=== PATIENT | male | born 1965 | race Caucasian/White ===

== ENCOUNTER 2022-07-01 15:15 | Inpatient (IN) ==
[2022-07-01] MEDS ORDERED: VANCOMYCIN INJ 1,000 MG in SODIUM CHLORIDE 0.9% 250 ML IV STA (21:44)
[2022-07-01 22:13] LABS: Basophils % 0.5 % (0.0-0.8); Eosinophils # 0.1 10*3/uL (0.0-0.87); Eosinophils % 1.4 % (0.00-10.9); Hematocrit 36.2 VOL% (42.0-52.0); Hemoglobin 11.7 GM/DL (14.0-18.0); Immature Granulocytes % 0.6 %; Immature Granulocytes Absolute 0.05 #; Lymphocytes # 1.6 10*3/uL (1.4-4.0); Mean Corpuscular HGB Conc 32.3 GM/DL (32-36); Mean Corpuscular Volume 89.2 FL (87-102); Mean Platelet Volume 10.1 FL (9.6-12.0); Monocytes # 0.3 10*3/uL (0.11-0.8); Neutrophils % 73.5 % (38.7-73.9); Platelet Count 403 T/CUMM (130-400); Red Blood Count 4.06 MC/CUMM (3.8-5.5); Red Cell Distribution Width 13.5 % (9.3-17.3)
[2022-07-01 22:32] LABS: Alanine Aminotransferase 15 U/L (16-61); Albumin 2.9 G/DL (3.4-5.0); Alkaline Phosphatase 62 U/L (45-117); Aspartate Amino Transferase 12 U/L (0-37); Bilirubin,Total < 0.39 MG/DL (0.20-1.00); Blood Urea Nitrogen 19 MG/DL (7-18); Calcium 9.4 MG/DL (8.5-10.1); Carbon Dioxide 27 MMOL/L (21-32); Chloride 99 MMOL/L (98-107); Glucose 393 MG/DL (74-106); Osmolality,Calculated 279.7 MOS/KG (273-304); Potassium 4.8 MMOL/L (3.5-5.1); Sodium 131 MMOL/L (136-145); Total Protein 8.3 G/DL (6.4-8.2)
[2022-07-01] MEDS ORDERED: SODIUM CHLORIDE 0.9% 1,000 ML IV STA (22:34)
[2022-07-01] MEDS ORDERED: ACETAMINOPHEN 325 MG TABLET PO PRN (22:40)
[2022-07-01] MEDS ORDERED: DEXTROSE 50% 25 GM/50 ML VIAL IV PRN (22:40)
[2022-07-01] MEDS ORDERED: GLUCAGON 1 MG VIAL IM PRN (22:40)
[2022-07-01] MEDS ORDERED: DEXTROSE 10% 250 ML BAG IV PRN (22:40)
[2022-07-01] MEDS ORDERED: ONDANSETRON 4 MG/2 ML VIAL IV PRN (22:40)
[2022-07-01] MEDS ORDERED: VANCOMYCIN INJ 500 MG in SODIUM CHLORIDE 0.9% 100 ML IV STA (22:51)
[2022-07-02] MEDS: SODIUM CHLORIDE 0.9% 1,000 ML IV SCH ×3 (01:01→16:11)
[2022-07-02 03:52] LABS: Basophils % 0.2 % (0.0-0.8); Eosinophils # 0.1 10*3/uL (0.0-0.87); Eosinophils % 1.6 % (0.00-10.9); Hematocrit 35.7 VOL% (42.0-52.0); Hemoglobin 11.4 GM/DL (14.0-18.0); Immature Granulocytes % 0.6 %; Immature Granulocytes Absolute 0.05 #; Lymphocytes # 1.9 10*3/uL (1.4-4.0); Lymphocytes % 21.5 % (21.2-54.2); Mean Corpuscular HGB Conc 31.9 GM/DL (32-36); Mean Corpuscular Volume 88.8 FL (87-102); Mean Platelet Volume 9.9 FL (9.6-12.0); Monocytes # 0.3 10*3/uL (0.11-0.8); Monocytes % 3.9 % (1.7-12.7); Neutrophils % 72.2 % (38.7-73.9); Platelet Count 390 T/CUMM (130-400); Red Blood Count 4.02 MC/CUMM (3.8-5.5); Red Cell Distribution Width 13.4 % (9.3-17.3); White Blood Count 8.6 T/CUMM (4-12)
[2022-07-02 04:14] LABS: Alanine Aminotransferase 15 U/L (16-61); Albumin 2.8 G/DL (3.4-5.0); Alkaline Phosphatase 60 U/L (45-117); Aspartate Amino Transferase 9 U/L (0-37); Bilirubin,Total < 0.39 MG/DL (0.20-1.00); Blood Urea Nitrogen 18 MG/DL (7-18); Calcium 9.1 MG/DL (8.5-10.1); Carbon Dioxide 27 MMOL/L (21-32); Chloride 103 MMOL/L (98-107); Glucose 264 MG/DL (74-106); Osmolality,Calculated 280.1 MOS/KG (273-304); Potassium 4.8 MMOL/L (3.5-5.1); Sodium 135 MMOL/L (136-145); Total Protein 7.9 G/DL (6.4-8.2)
[2022-07-02 07:25] LABS: Total Protein (Chem) 7.6 G/DL (6.4-8.3)
[2022-07-02] MEDS: INSULIN REGULAR 100 UNIT/ML SUBCUT SCH ×4 (07:30→21:50)
[2022-07-02] MEDS ORDERED: LANSOPRAZOLE 15 MG PO SCH (09:00)
[2022-07-02] MEDS ORDERED: POLYVINYL 0.5%/POVIDONE 0.6% OPH SOLN 15 ML BOTTLE BOTH EYES PRN (09:26)
[2022-07-02 10:11] LABS: Albumin (SPE) 3.6 G/DL (3.2-5.3); Albumin (SPE) Rel % 47.2 %; Alpha 1 (SPE) 0.2 G/DL (0.1-0.4); Alpha 2 (SPE) 0.9 G/DL (0.4-1.0); Alpha 2 (SPE) Rel % 12.4 %; Beta (SPE) 0.9 G/DL (0.5-1.1); Beta (SPE) Rel % 12.1 %; Gamma (SPE) 1.9 G/DL (0.7-1.7); Gamma (SPE) Rel % 25.3 %
[2022-07-02] MEDS: FENOFIBRATE 48 MG TABLET PO SCH (10:28)
[2022-07-02] MEDS: CITALOPRAM 20 MG TABLET PO SCH (10:29)
[2022-07-02] MEDS: PANTOPRAZOLE 40 MG TABLET PO SCH (10:29)
[2022-07-02] MEDS: EZETIMIBE 10 MG TABLET PO SCH (10:29)
[2022-07-02] MEDS: ENOXAPARIN 40 MG/0.4 ML SYRINGE SUBCUT SCH (10:29)
[2022-07-02] MEDS: CEFEPIME 1,000 MG in SODIUM CHLORIDE 0.9% 100 ML IV SCH ×3 (10:30→21:49)
[2022-07-02] MEDS: CETIRIZINE 10 MG TABLET PO SCH (10:30)
[2022-07-02] MEDS: FLUTICASONE 50 MCG NASAL SPRAY 16 GM BOTTLE BOTH NARES SCH (10:31)
[2022-07-02] MEDS ORDERED: VANCOMYCIN INJ 1,500 MG in SODIUM CHLORIDE 0.9% 250 ML IV SCH (11:00)
[2022-07-02] MEDS: VANCOMYCIN INJ 1,500 MG in SODIUM CHLORIDE 0.9% 500 ML IV SCH ×2 (11:27→22:00)
[2022-07-02] MEDS ORDERED: ZINC OXIDE PASTE 113 GM TUBE TOP PRN (15:16)
[2022-07-02] MEDS: INSULIN GLARGINE 100 UNIT/ML SUBCUT SCH (21:49)
[2022-07-02] MEDS: GABAPENTIN 600 MG TABLET PO SCH (21:50)
[2022-07-02] MEDS: MINERAL OIL/PETROLATUM OPH OINT 3.5 GM TUBE BOTH EYES SCH (22:00)
[2022-07-03] MEDS: SODIUM CHLORIDE 0.9% 1,000 ML IV SCH ×3 (00:24→23:27)
[2022-07-03] MEDS: CEFEPIME 1,000 MG in SODIUM CHLORIDE 0.9% 100 ML IV SCH ×4 (03:50→21:36)
[2022-07-03 06:35] LABS: Basophils % 0.3 % (0.0-0.8); Eosinophils # 0.1 10*3/uL (0.0-0.87); Eosinophils % 2.1 % (0.00-10.9); Hematocrit 32.4 VOL% (42.0-52.0); Hemoglobin 10.6 GM/DL (14.0-18.0); Immature Granulocytes % 0.5 %; Immature Granulocytes Absolute 0.03 #; Lymphocytes # 1.6 10*3/uL (1.4-4.0); Lymphocytes % 28.3 % (21.2-54.2); Mean Corpuscular HGB Conc 32.7 GM/DL (32-36); Mean Corpuscular Volume 88.8 FL (87-102); Mean Platelet Volume 9.7 FL (9.6-12.0); Monocytes # 0.3 10*3/uL (0.11-0.8); Monocytes % 4.7 % (1.7-12.7); Neutrophils % 64.1 % (38.7-73.9); Platelet Count 338 T/CUMM (130-400); Red Blood Count 3.65 MC/CUMM (3.8-5.5); Red Cell Distribution Width 13.2 % (9.3-17.3); White Blood Count 5.7 T/CUMM (4-12)
[2022-07-03 07:09] LABS: Calcium 8.6 MG/DL (8.5-10.1); Osmolality,Calculated 275.8 MOS/KG (273-304); Potassium 4.3 MMOL/L (3.5-5.1)
[2022-07-03] MEDS ORDERED: LORazepam 1 MG TABLET PO ONE (08:39)
[2022-07-03] MEDS: CHOLECALCIFEROL 1,000 UNIT TABLET PO SCH (09:46)
[2022-07-03] MEDS: FENOFIBRATE 48 MG TABLET PO SCH (09:46)
[2022-07-03] MEDS: CETIRIZINE 10 MG TABLET PO SCH (09:47)
[2022-07-03] MEDS: PANTOPRAZOLE 40 MG TABLET PO SCH (09:47)
[2022-07-03] MEDS: EZETIMIBE 10 MG TABLET PO SCH (09:47)
[2022-07-03] MEDS: GABAPENTIN 300 MG CAPSULE PO SCH (09:48)
[2022-07-03] MEDS: CITALOPRAM 20 MG TABLET PO SCH (09:49)
[2022-07-03] MEDS: INSULIN REGULAR 100 UNIT/ML SUBCUT SCH ×4 (09:51→21:36)
[2022-07-03] MEDS: ENOXAPARIN 40 MG/0.4 ML SYRINGE SUBCUT SCH (09:52)
[2022-07-03] MEDS: MULTIVITAMIN (CENTRUM) TABLET PO SCH (11:13)
[2022-07-03] MEDS: FLUTICASONE 50 MCG NASAL SPRAY 16 GM BOTTLE BOTH NARES SCH (11:13)
[2022-07-03] MEDS: VANCOMYCIN INJ 1,500 MG in SODIUM CHLORIDE 0.9% 500 ML IV SCH (12:30)
[2022-07-03] MEDS: GABAPENTIN 600 MG TABLET PO SCH (21:35)
[2022-07-03] MEDS: INSULIN GLARGINE 100 UNIT/ML SUBCUT SCH (21:36)
[2022-07-03] MEDS: MINERAL OIL/PETROLATUM OPH OINT 3.5 GM TUBE BOTH EYES SCH (23:27)
[2022-07-04] MEDS: CEFEPIME 1,000 MG in SODIUM CHLORIDE 0.9% 100 ML IV SCH ×4 (02:54→20:29)
[2022-07-04] MEDS: SODIUM CHLORIDE 0.9% 1,000 ML IV SCH ×4 (02:55→22:58)
[2022-07-04] MEDS: VANCOMYCIN INJ 1,500 MG in SODIUM CHLORIDE 0.9% 500 ML IV SCH ×3 (05:10→22:58)
[2022-07-04 05:27] LABS: Basophils % 0.6 % (0.0-0.8); Eosinophils # 0.1 10*3/uL (0.0-0.87); Eosinophils % 1.8 % (0.00-10.9); Hematocrit 32.5 VOL% (42.0-52.0); Hemoglobin 10.6 GM/DL (14.0-18.0); Immature Granulocytes % 0.8 %; Immature Granulocytes Absolute 0.04 #; Lymphocytes # 1.6 10*3/uL (1.4-4.0); Lymphocytes % 30.4 % (21.2-54.2); Mean Corpuscular HGB Conc 32.6 GM/DL (32-36); Mean Corpuscular Volume 87.4 FL (87-102); Mean Platelet Volume 9.7 FL (9.6-12.0); Monocytes # 0.3 10*3/uL (0.11-0.8); Neutrophils % 60.4 % (38.7-73.9); Platelet Count 349 T/CUMM (130-400); Red Blood Count 3.72 MC/CUMM (3.8-5.5); Red Cell Distribution Width 13.2 % (9.3-17.3); White Blood Count 5.1 T/CUMM (4-12)
[2022-07-04 05:47] LABS: Calcium 8.5 MG/DL (8.5-10.1); Osmolality,Calculated 275.8 MOS/KG (273-304)
[2022-07-04] MEDS: FENOFIBRATE 48 MG TABLET PO SCH (09:03)
[2022-07-04] MEDS: FLUTICASONE 50 MCG NASAL SPRAY 16 GM BOTTLE BOTH NARES SCH (09:03)
[2022-07-04] MEDS: INSULIN REGULAR 100 UNIT/ML SUBCUT SCH ×4 (09:05→20:37)
[2022-07-04] MEDS: ENOXAPARIN 40 MG/0.4 ML SYRINGE SUBCUT SCH (09:05)
[2022-07-04] MEDS: MULTIVITAMIN (CENTRUM) TABLET PO SCH (09:05)
[2022-07-04] MEDS: GABAPENTIN 300 MG CAPSULE PO SCH (09:05)
[2022-07-04] MEDS: PANTOPRAZOLE 40 MG TABLET PO SCH (09:05)
[2022-07-04] MEDS: CETIRIZINE 10 MG TABLET PO SCH (09:06)
[2022-07-04] MEDS: CHOLECALCIFEROL 1,000 UNIT TABLET PO SCH (09:06)
[2022-07-04] MEDS: EZETIMIBE 10 MG TABLET PO SCH (09:06)
[2022-07-04] MEDS: CITALOPRAM 20 MG TABLET PO SCH (09:06)
[2022-07-04] MEDS: GABAPENTIN 600 MG TABLET PO SCH (20:28)
[2022-07-04] MEDS: MINERAL OIL/PETROLATUM OPH OINT 3.5 GM TUBE BOTH EYES SCH (20:29)
[2022-07-04] MEDS: INSULIN GLARGINE 100 UNIT/ML SUBCUT SCH (21:46)
[2022-07-05] MEDS: CEFEPIME 1,000 MG in SODIUM CHLORIDE 0.9% 100 ML IV SCH ×4 (02:44→20:59)
[2022-07-05 05:02] LABS: Basophils % 0.5 % (0.0-0.8); Eosinophils # 0.1 10*3/uL (0.0-0.87); Eosinophils % 1.8 % (0.00-10.9); Hematocrit 31.9 VOL% (42.0-52.0); Hemoglobin 10.4 GM/DL (14.0-18.0); Immature Granulocytes % 0.5 %; Immature Granulocytes Absolute 0.03 #; Lymphocytes # 1.9 10*3/uL (1.4-4.0); Lymphocytes % 33.5 % (21.2-54.2); Mean Corpuscular HGB Conc 32.6 GM/DL (32-36); Mean Corpuscular Volume 87.9 FL (87-102); Mean Platelet Volume 9.9 FL (9.6-12.0); Monocytes # 0.3 10*3/uL (0.11-0.8); Monocytes % 5.3 % (1.7-12.7); Neutrophils % 58.4 % (38.7-73.9); Platelet Count 317 T/CUMM (130-400); Red Blood Count 3.63 MC/CUMM (3.8-5.5); Red Cell Distribution Width 13.2 % (9.3-17.3); White Blood Count 5.7 T/CUMM (4-12)
[2022-07-05 05:35] LABS: Calcium 8.7 MG/DL (8.5-10.1); Osmolality,Calculated 286.5 MOS/KG (273-304)
[2022-07-05] MEDS ORDERED: MIDAZOLAM 2 MG/2 ML VIAL ONE (06:47)
[2022-07-05] MEDS ORDERED: propofoL 200 MG/20 ML VIAL IV ONE (06:47)
[2022-07-05] MEDS ORDERED: LIDOCAINE 2% 5 ML VIAL ONE (06:47)
[2022-07-05] MEDS ORDERED: fentaNYL 100 MCG/2 ML VIAL ONE (06:47)
[2022-07-05] MEDS ORDERED: FAMOTIDINE 20 MG/2 ML VIAL IV ONE (06:58)
[2022-07-05] MEDS ORDERED: LACTATED RINGERS 1,000 ML IV SCH (07:00)
[2022-07-05] MEDS ORDERED: ONDANSETRON 4 MG/2 ML VIAL ONE (07:19)
[2022-07-05] MEDS: INSULIN REGULAR 100 UNIT/ML SUBCUT SCH ×4 (07:25→21:01)
[2022-07-05] MEDS: GABAPENTIN 300 MG CAPSULE PO SCH (07:37)
[2022-07-05] MEDS ORDERED: SEVOFLURANE 1 UNIT/15 MINUTE INH ONE (07:38)
[2022-07-05] MEDS: SODIUM CHLORIDE 0.9% 1,000 ML IV SCH ×2 (09:58→15:29)
[2022-07-05] MEDS: EZETIMIBE 10 MG TABLET PO SCH (09:58)
[2022-07-05] MEDS: CHOLECALCIFEROL 1,000 UNIT TABLET PO SCH (09:58)
[2022-07-05] MEDS: PANTOPRAZOLE 40 MG TABLET PO SCH (09:58)
[2022-07-05] MEDS: FENOFIBRATE 48 MG TABLET PO SCH (09:58)
[2022-07-05] MEDS: CITALOPRAM 20 MG TABLET PO SCH (09:58)
[2022-07-05] MEDS: FLUTICASONE 50 MCG NASAL SPRAY 16 GM BOTTLE BOTH NARES SCH (09:58)
[2022-07-05] MEDS: CETIRIZINE 10 MG TABLET PO SCH (09:58)
[2022-07-05] MEDS: MULTIVITAMIN (CENTRUM) TABLET PO SCH (09:58)
[2022-07-05] MEDS ORDERED: GLUCAGON 1 MG VIAL IM PRN (10:16)
[2022-07-05] MEDS ORDERED: DEXTROSE 50% 25 GM/50 ML VIAL IV PRN (10:16)
[2022-07-05] MEDS ORDERED: KETOROLAC 15 MG/1 ML VIAL IV ONE (11:19)
[2022-07-05] MEDS: VANCOMYCIN INJ 1,500 MG in SODIUM CHLORIDE 0.9% 500 ML IV SCH (17:35)
[2022-07-05] MEDS: GABAPENTIN 600 MG TABLET PO SCH (20:59)
[2022-07-05] MEDS: INSULIN GLARGINE 100 UNIT/ML SUBCUT SCH (21:00)
[2022-07-05] MEDS: MINERAL OIL/PETROLATUM OPH OINT 3.5 GM TUBE BOTH EYES SCH (21:05)
[2022-07-06] MEDS: SODIUM CHLORIDE 0.9% 1,000 ML IV SCH ×2 (02:41→09:31)
[2022-07-06] MEDS: CEFEPIME 1,000 MG in SODIUM CHLORIDE 0.9% 100 ML IV SCH ×2 (02:42→09:24)
[2022-07-06 05:42] LABS: Basophils % 0.3 % (0.0-0.8); Eosinophils # 0.2 10*3/uL (0.0-0.87); Eosinophils % 2.8 % (0.00-10.9); Hematocrit 31.5 VOL% (42.0-52.0); Hemoglobin 10.5 GM/DL (14.0-18.0); Immature Granulocytes % 0.4 %; Immature Granulocytes Absolute 0.03 #; Lymphocytes # 1.7 10*3/uL (1.4-4.0); Lymphocytes % 24.6 % (21.2-54.2); Mean Corpuscular HGB Conc 33.3 GM/DL (32-36); Mean Corpuscular Volume 86.3 FL (87-102); Mean Platelet Volume 9.8 FL (9.6-12.0); Monocytes # 0.3 10*3/uL (0.11-0.8); Monocytes % 4.1 % (1.7-12.7); Neutrophils % 67.8 % (38.7-73.9); Platelet Count 313 T/CUMM (130-400); Red Blood Count 3.65 MC/CUMM (3.8-5.5); Red Cell Distribution Width 13.2 % (9.3-17.3); White Blood Count 6.8 T/CUMM (4-12)
[2022-07-06 06:06] LABS: Calcium 8.5 MG/DL (8.5-10.1); Osmolality,Calculated 279.7 MOS/KG (273-304); Potassium 4.1 MMOL/L (3.5-5.1)
[2022-07-06] MEDS ORDERED: SODIUM HYPOCHLORITE 0.25% IRRIG 473 ML BOTTLE TOP SCH (09:00)
[2022-07-06] MEDS: CITALOPRAM 20 MG TABLET PO SCH (09:29)
[2022-07-06] MEDS: CETIRIZINE 10 MG TABLET PO SCH (09:30)
[2022-07-06] MEDS: GABAPENTIN 300 MG CAPSULE PO SCH (09:30)
[2022-07-06] MEDS: CHOLECALCIFEROL 1,000 UNIT TABLET PO SCH (09:30)
[2022-07-06] MEDS: PANTOPRAZOLE 40 MG TABLET PO SCH (09:30)
[2022-07-06] MEDS: EZETIMIBE 10 MG TABLET PO SCH (09:30)
[2022-07-06] MEDS: MULTIVITAMIN (CENTRUM) TABLET PO SCH (09:30)
[2022-07-06] MEDS: FENOFIBRATE 48 MG TABLET PO SCH (09:30)
[2022-07-06] MEDS: INSULIN REGULAR 100 UNIT/ML SUBCUT SCH ×2 (09:31→12:14)
[2022-07-06] MEDS: FLUTICASONE 50 MCG NASAL SPRAY 16 GM BOTTLE BOTH NARES SCH (09:33)
[2022-07-06] MEDS: VANCOMYCIN INJ 1,500 MG in SODIUM CHLORIDE 0.9% 500 ML IV SCH (10:00)
[2022-07-06 12:01] VITALS: BP 143/57
[2022-07-06] MEDS ORDERED: SULFAMETHOX/TRIMETHOPRIM 800-160 MG TABLET PO SCH (21:00)
[2022-07-07] MEDS ORDERED: metFORMIN 500 MG TABLET PO SCH (08:00)
== END 2022-07-06 14:30 | DRG 629 ==
LOC: N.ED 15:15 → N.5E 22:40
PROVIDERS: ADMIT Internal Medicine; ATTEND Internal Medicine